=== PATIENT | male | born 1990 | race African-American/Black ===

== ENCOUNTER 2016-06-06 14:33 | Emergency (ER) | payer SELFPAY ==
[~2016-06-06] VITALS: Ht 170.2 cm; Wt 83.7 kg
[~2016-06-06 14:33] MED LIST: CONCERTA36 MG PO; PROVENTIL17 GM IH
[2016-06-06] MEDS ORDERED: TESSALON PERLE100 MG PO (16:50)
[2016-06-06] MEDS ORDERED: MOBIC7.5 MG PO (16:50)
[2016-06-06] MEDS ORDERED: PHENERGAN-CODE120 ML PO (16:50)
[2016-06-06 17:03] VITALS: BP 132/77
== END 2016-06-06 17:04 | disposition home or self-care (01) ==
LOC: RME 14:33 → EME 14:33 → RME 17:04
DX: S93.401A Sprain of unspecified ligament of right ankle, initial encounter (principal); R05 Cough; W01.0XXA Fall on same level from slipping, tripping and stumbling without subsequent striking against object, initial encounter; Y93.01 Activity, walking, marching and hiking; F17.200 Nicotine dependence, unspecified, uncomplicated
CPT/HCPCS: 73610; 73630; 99281; 99284

== ENCOUNTER 2016-08-25 20:49 | Emergency (ER) | payer SELFPAY ==
[~2016-08-25] VITALS: Ht 170.2 cm; Wt 86.0 kg
[~2016-08-25 20:49] MED LIST changes: +MOBIC7.5 MG PO; +PHENERGAN-CODE120 ML PO; +TESSALON PERLE100 MG PO
[2016-08-25] MEDS ORDERED: BACTRIM,SEPT1 TABLET PO (22:06)
[2016-08-25 22:30] VITALS: BP 162/92
== END 2016-08-25 22:31 | disposition home or self-care (01) ==
LOC: EME 20:49
DX: N48.21 Abscess of corpus cavernosum and penis (principal); N48.22 Cellulitis of corpus cavernosum and penis; F17.200 Nicotine dependence, unspecified, uncomplicated
CPT/HCPCS: 99281; 99283

== ENCOUNTER 2016-09-17 11:53 | Emergency (ER) | payer SELFPAY ==
[~2016-09-17] VITALS: Ht 170.2 cm; Wt 83.1 kg
[~2016-09-17 11:53] MED LIST changes: +BACTRIM,SEPT1 TABLET PO
[2016-09-17] MEDS ORDERED: NAPROSYN500 MG PO (13:48)
[2016-09-17 14:12] VITALS: BP 138/79
== END 2016-09-17 14:19 | disposition home or self-care (01) ==
LOC: EME 11:53
DX: S09.90XA Unspecified injury of head, initial encounter (principal); S60.212A Contusion of left wrist, initial encounter; Y04.2XXA Assault by strike against or bumped into by another person, initial encounter; F17.200 Nicotine dependence, unspecified, uncomplicated
CPT/HCPCS: 70450; 73130; 99281; 99284

== ENCOUNTER 2017-02-07 21:12 | Emergency (ER) | payer SELFPAY ==
[~2017-02-07] VITALS: Ht 170.2 cm; Wt 83.1 kg
[~2017-02-07 21:12] MED LIST changes: +NAPROSYN500 MG PO
[2017-02-07 22:00] LABS: HEMATOCRIT 42.7 % (38.0-50.0); MCH 32.2 PG (29.0-34.0); MCHC 35.4 G/DL (30.0-36.0); MEAN PLAT.VOLUME 10.5 uM^3 (9.0-12.4); PLATELET COUNT 251 K/uL (156-360); RBC DIS.WIDTH-CV 11.9 % (11.8-14.6); RBC DIS.WIDTH-SD 39.4 % (39-53); RED BLOOD COUNT 4.69 M/uL (4.00-5.50); WHITE BLOOD COUNT 10.5 K/uL (4.1-10.2)
[2017-02-07 22:16] LABS: CHLORIDE 105 mEq/L (99-109); POTASSIUM 3.4 mEq/L (3.7-5.4); SODIUM 141 mEq/L (136-147)
[2017-02-07 22:18] LABS: GLUCOSE 115 mg/dL (70-99)
[2017-02-07 22:19] LABS: ANION GAP 13 MEQ/L (2-14)
[2017-02-07 22:22] LABS: GFR ESTIMATE (CALCULATED) > 59 mL/min/
[2017-02-07 22:23] LABS: UREA NITROGEN (BUN) 9 mg/dL (9-23)
[2017-02-07] MEDS ORDERED: ZITHROMAX250 MG PO (22:49)
[2017-02-07] MEDS ORDERED: HYCODAN SYRUP480 ML PO (22:49)
[2017-02-07] MEDS ORDERED: PREDNISONE20 MG PO (22:49)
[2017-02-07 23:26] VITALS: BP 161/98
== END 2017-02-07 23:29 | disposition home or self-care (01) ==
LOC: EME 21:12
DX: J40 Bronchitis, not specified as acute or chronic (principal); M54.9 Dorsalgia, unspecified; J45.909 Unspecified asthma, uncomplicated; F17.200 Nicotine dependence, unspecified, uncomplicated
CPT/HCPCS: 71020; 80048; 85027; 99281; 99284; J7512